=== PATIENT | male | born 1955 | race Caucasian/White ===

== ENCOUNTER 2017-11-08 10:38 | Emergency (ER) | payer MEDICAID ==
[2016-04-30 09:19] VITALS: BMI 27.1
[~2017-11-08 10:38] MED LIST: ASPIRIN81 MG PO; CORDARONE200 MG PO; HEMOCYTE PLUS C1 CAP PO; HYDROCODONE-APA1 TAB PO; LIPITOR10 MG PO; LOPRESSOR25 MG PO; RESTORIL15 MG PO; ZESTRIL10 MG PO
[2017-11-08 11:11] LABS: BASOPHILS 0.6 % (0-2); EOSINOPHILS 2.8 % (0-7); HEMATOCRIT 39.3 % (42.0-54.0); IMMATURE GRANULOCYTES 0.1 % (0-5); LYMPHOCYTES 29.2 % (15-50); MCH 32.8 pg (26.0-34.0); MCHC 33.1 g/dL (31.0-37.0); MCV 99.2 fL (80.0-100.0); MEAN PLATELET VOLUME 10.6 fL (7.4-10.4); MONOCYTES 9.3 % (2-11); PLATELET COUNT 183 10x3/uL (130-400); RBC 3.96 10x6/uL (4.20-6.10); RDW 15.5 % (11.5-14.5); WBC 7.2 10x3/uL (4.8-10.8)
[2017-11-08 11:40] LABS: ALBUMIN 3.8 g/dL (3.4-5.0); ALKALINE PHOSPHATASE 148 U/L (46-116); ALT (SGPT) 90 U/L (10-68); BILIRUBIN - TOTAL 1.89 mg/dL (0.2-1.3); CALC OSMOLALITY 289 mosm/kg (275-300); CALCIUM 8.7 mg/dL (8.5-10.1); CHLORIDE - SERUM 105 mmol/L (98-107); CREATININE - SERUM 1.7 mg/dL (0.6-1.3); GLUCOSE 100 mg/dL (74-106); POTASSIUM - SERUM 4.5 mmol/L (3.5-5.1); PROTEIN - SERUM 7.3 g/dL (6.4-8.2); SODIUM 141 mmol/L (136-145); UREA NITROGEN 39 mg/dL (7-18); eGFR NON AFRICAN AMERICAN 43 mL/min (90-120)
[2017-11-08 11:50] LABS: CKMB 2.9 U/L (0.0-3.6); CREATINE KINASE 135 UL (21-232); PRO BNP 1799 pg/mL (0-125)
[2017-11-08 11:51] LABS: TROPONIN-I < 0.017 ng/mL (0.000-0.060)
== END 2017-11-08 15:08 | disposition home or self-care (01) ==
LOC: D.ER 10:38
PROVIDERS: Family Medicine
DX: I48.91 Unspecified atrial fibrillation (principal); J90 Pleural effusion, not elsewhere classified; R06.02 Shortness of breath; I25.810 Atherosclerosis of coronary artery bypass graft(s) without angina pectoris; I10 Essential (primary) hypertension; I49.3 Ventricular premature depolarization; I45.10 Unspecified right bundle-branch block

== ENCOUNTER 2017-11-13 21:24 | Inpatient (IN) | payer MEDICAID ==
[~2017-11-13] VITALS: Ht 185.4 cm; Wt 105.2 kg
--- NOTE | ~2017-11-13 | EC ---
PATIENT:BRIONNA KEENAN DATE OF SERVICE: 11/13/17 SEX: M MEDICAL RECORD: [id number] DATE OF : 53 LOCATION:[place] [address] AGE OF PATIENT: 62 ADMISSION DATE: 11/13/17 REFERRING PHYSICIAN: INTERPRETING PHYSICIAN: MARTA ANGULO MD ECHOCARDIOGRAM REPORT ECHO CHARGES 4 ECHO COMPLETE CLINICAL DIAGNOSIS: AV BLOCK, ASSESS EF ECHOCARDIOGRAPHIC MEASUREMENTS (adult normal given) AC root (d.<3.7cm) 4.1 cm LV Septum d (<1.2 cm> 1.7 cm Valve Excursion 2.2 cm LV Septum (systole) 2.5 cm Left Atria (s.<4.0cm> 4.8 cm LVPW d(<1.2cm) 1.9 cm RV (d.<2.3cm) 5.4 cm LVPW (sytole) 2.5 cm LV diastole(<5.6CM) 6.2 cm MV E-F(>70mm/sec) cm LV systole 4.8 cm LVOT Diameter 2.2 cm MV exc.(>10mm) 1.5 cm Est.ejection fraction (50-75%) % Pericardial Effusion N DOPPLER: LVIT cm/sec A 54.0 cm/sec E 124 cm/sec LA cm/sec RVSP 45 mmHg LVOT 94 cm/sec AOP1/2T m/s Asc. Ao 128 cm/sec RVOT cm/sec RA cm/sec PA 93 cm/sec AV Gradient Peak 6.513mmHg AV Mean 3.05 mmHg AV Area 2.8 cm MV Gradient Peak 8.93 mmHg MV Mean 3.35 mmHg MV Area cm COMMENTS: Product Delivery Specialist: 2 MARCELLO SNOWDEN Fast Food Supervisor: 3 Dr. Mcgrath TAPE# PACS DATE OF SERVICE: 11/14/2017 Adequate 2D echo, color flow and spectral Doppler, and M-mode. LVH is present. LV internal dimensions are normal. Wall motion is normal. EF is greater than or equal to 55%. Aortic valve sclerosis without stenosis by Doppler interrogation. The left atrium is dilated at 4.8 cm. Mitral valve shows no prolapse, but a moderate plus MR. Right-sided chamber is grossly normal. Moderate TR by color flow imaging. TRANSINT:[id number] Voice Confirmation ID: [id number] DOCUMENT ID: [id number] ECHOCARDIOGRAM REPORT [id number] BRIONNA KEENAN 11/18/2017 Edited to correct date of service, dmm. MARTA ANGULO MD at 0823 CC: [id number] DICTATION DATE: 11/15/17 1049 FRONT EDGER: 11/15/17 1244 DIS IN 11/15/17 [place] [id number] [place] [id number]
--- NOTE | ~2017-11-13 | CN ---
PATIENT NAME:BRIONNA KEENAN MEDICAL RECORD: [id number] : 53 LOCATION:[facility] ADMIT DATE: 11/13/17 ACCOUNT: [id number] CONSULTING PHYSICIAN: MARTA ANGULO MD REFERRING PHYSICIAN: KUNAL CRAIN MD DATE OF CONSULTATION: 11/14/2017 Cardiology Consultation HISTORY OF PRESENT ILLNESS: A 62-year-old gentleman with a known history of coronary artery disease status post coronary bypass grafting, was seen with atrial fibrillation and RVR initially, saw Dr. Sheth in clinic and was started on sotalol. He was previously on lisinopril, potassium supplementation, and Lasix. He presented to the ER basically with mone syncope, was found to have almost mone sine waves with potassium of 7.1. Core temperature was decreased fortunately. He has received insulin, bicarbonate, and Kayexalate and repeat potassium is pending. He is currently in sinus rhythm actually. We are asked to see him concerning his cardiovascular status. PAST MEDICAL HISTORY: Includes: 1. History of hypertension. 2. Atrial fibrillation. 3. Coronary artery disease. ALLERGIES: MORPHINE. MEDICATIONS: Typically include sotalol 80 b.i.d., Xarelto 20 daily, lisinopril 10 daily, atorvastatin 10 daily, metoprolol 50 b.i.d. SOCIAL HISTORY: , lives here in [place]. He was smoking at the time of his bypass surgery. REVIEW OF SYSTEMS: The patient reports easy bruising but reports no swollen glands. The patient reports no fever, no night sweats, no significant weight gain, no significant weight loss. No significant exercise tolerance. The patient reports no dry eyes, no irritation, no vision change. Patient reports no difficulty hearing and no ear pain. Patient reports no frequent nose bleeds or nose and sinus problems. Patient reports on arm pain on exertion. No shortness of breath while lying down. No history of heart murmur. Patient reports no cough, no wheezing or coughing up blood. Patient reports no abdominal pain, no vomiting. Normal appetite. No diarrhea and not vomiting blood. No nausea and no constipation. Patient reports no incontinence. No difficulty urinating. No hematuria. No increased frequency. Patient reports no muscle aches. No weakness, no arthralgias, no back pain. No swelling of the extremities. Patient reports no abnormal mole, no jaundice, no rashes. Reports no loss of consciousness. No weakness and no numbness. No seizures, dizziness, or headaches. The patient reports no depression, no sleep disturbance, feeling safe in a relationship and no alcohol abuse. Patient reports on fatigue. Reports no runny nose or sinus pressure. No itching, no hives, and no frequent sneezing. PHYSICAL EXAMINATION: GENERAL: Pleasant gentleman in no acute distress, alert and oriented. VITAL SIGNS: Blood pressure 106/86, pulse 76 and regular. HEENT: Normocephalic, atraumatic. CONSULT REPORT [id number] BRIONNA KEENAN NECK: No JVD or bruit. HEART: Regular. I do not hear any systole. LUNGS: Clear. ABDOMEN: Soft, nontender. EXTREMITIES: Pulses 2+ with no edema. NEUROLOGICAL: Grossly intact. DIAGNOSTIC DATA: ECG currently shows sinus rhythm. IMPRESSION: Hyperkalemia with marked ST-T and QRS changes, almost sine wave on his initial ECG. In talking with the patient, he has had severe GI distress. He has been eating peaches only for the last couple of days and has probably multifactorial issues. We will decrease potassium appropriately, reevaluate medications. Echocardiography study check. TRANSINT:[id number] Voice Confirmation ID: [id number] DOCUMENT ID: [id number] MARTA ANGULO MD at 0823 CC: [id number] DICTATION DATE: 11/14/17 112 PLASTER FOREMAN: 11/14/17 1528 DIS IN 11/15/17 [place] [id number] [place] [id number]
[2017-11-13 21:41] LABS: BASOPHILS 0.6 % (0-2); EOSINOPHILS 1.8 % (0-7); HEMATOCRIT 44.8 % (42.0-54.0); HEMOGLOBIN 14.4 g/dL (13.5-17.5); IMMATURE GRANULOCYTES 2.8 % (0-5); LYMPHOCYTES 36.5 % (15-50); MCH 32.4 pg (26.0-34.0); MCHC 32.1 g/dL (31.0-37.0); MCV 100.7 fL (80.0-100.0); MEAN PLATELET VOLUME 11.9 fL (7.4-10.4); MONOCYTES 6.3 % (2-11); PLATELET COUNT 241 10x3/uL (130-400); RBC 4.45 10x6/uL (4.20-6.10); RDW 16.1 % (11.5-14.5); WBC 10.6 10x3/uL (4.8-10.8)
[2017-11-13 22:31] LABS: APPEARANCE CLEAR (CLEAR); BILIRUBIN NEGATIVE (NEGATIVE); COLOR YELLOW (YELLOW); GLUCOSE NEGATIVE (NEGATIVE); KETONE NEGATIVE (NEGATIVE); NITRITE NEGATIVE (NEGATIVE); PROTEIN 1+ mg/dL (NEGATIVE); SPECIFIC GRAVITY 1.025 (1.005-1.020); UROBILINOGEN NORMAL (NORMAL)
[2017-11-13 22:32] LABS: BACTERIA MODERATE /hpf (NONE SEEN)
[2017-11-13 22:50] LABS: UDS - AMPHET NEGATIVE QUAL (NEGATIVE); UDS - BARB NEGATIVE QUAL (NEGATIVE); UDS - BENZO POSITIVE QUAL (NEGATIVE); UDS - COCAINE NEGATIVE QUAL (NEGATIVE); UDS - OPIATE POSITIVE QUAL (NEGATIVE); UDS - PCP NEGATIVE QUAL (NEGATIVE); UDS - THC POSITIVE QUAL (NEGATIVE)
[2017-11-13 22:58] LABS: ALBUMIN 3.4 g/dL (3.4-5.0); ALKALINE PHOSPHATASE 174 U/L (46-116); ALT (SGPT) 171 U/L (10-68); CALC OSMOLALITY 281 mosm/kg (275-300); CALCIUM 9.6 mg/dL (8.5-10.1); CARBON DIOXIDE 18.6 mmol/L (21.0-32.0); CHLORIDE - SERUM 103 mmol/L (98-107); CHOL - HDL RATIO 3.1 ratio (2.3-4.9); CHOLESTEROL, TOTAL 81 mg/dL (0-200); CKMB 2.2 U/L (0.0-3.6); CREATINE KINASE 78 UL (21-232); CREATININE - SERUM 2.5 mg/dL (0.6-1.3); GLUCOSE 116 mg/dL (74-106); HDL CHOLESTEROL 26 mg/dL (32-96); LDL CHOLESTEROL 47 mg/dL (0-100); LDL-HDL RATIO 1.8 ratio (1.5-3.5); MAGNESIUM - SERUM 2.5 mg/dL (1.8-2.4); SODIUM 135 mmol/L (136-145); THYROID STIMULATING HORMONE 6.87 uIU/mL (0.36-3.74); TRIGLYCERIDE 43 mg/dL (30-200); TROPONIN-I < 0.017 ng/mL (0.000-0.060); UREA NITROGEN 44 mg/dL (7-18); eGFR NON AFRICAN AMERICAN 28 mL/min (90-120)
[2017-11-13 22:59] LABS: POTASSIUM - SERUM 7.3 mmol/L (3.5-5.1)
[2017-11-14] VITALS (50 sets, daily range): BP systolic 107–147; BP diastolic 69–105; BMI 30.7
[2017-11-14 04:15] LABS: BASOPHILS 0.1 % (0-2); EOSINOPHILS 0.2 % (0-7); HEMOGLOBIN 13.7 g/dL (13.5-17.5); IMMATURE GRANULOCYTES 0.7 % (0-5); LYMPHOCYTES 14.3 % (15-50); MCH 32.5 pg (26.0-34.0); MCHC 32.6 g/dL (31.0-37.0); MCV 99.8 fL (80.0-100.0); MONOCYTES 8.1 % (2-11); NEUTROPHILS 76.6 % (40-80); PLATELET COUNT 209 10x3/uL (130-400); RBC 4.21 10x6/uL (4.20-6.10); RDW 15.8 % (11.5-14.5)
[2017-11-14 04:16] LABS: WBC 13.5 10x3/uL (4.8-10.8)
[2017-11-14 04:37] LABS: ANION GAP 19.3 mmol/L (8-16); CALCIUM 8.2 mg/dL (8.5-10.1); CARBON DIOXIDE 19.8 mmol/L (21.0-32.0); CREATININE - SERUM 2.5 mg/dL (0.6-1.3)
[2017-11-14 04:40] LABS: POTASSIUM - SERUM 7.1 mmol/L (3.5-5.1)
[2017-11-14] MEDS ORDERED: KLOR-CON 1010 MEQ PO (12:39)
[2017-11-14] MEDS ORDERED: BETAPACE 80 MG80 MG PO (12:39)
[2017-11-14] MEDS ORDERED: LASIX40 MG PO (12:40)
[2017-11-14] MEDS ORDERED: XARELTO20 MG PO (12:40)
[2017-11-14] MEDS ORDERED: CARDIZEM120 MG PO (12:40)
[2017-11-15] VITALS: BP 133/88
[2017-11-15 04:16] LABS: BASOPHILS 0.3 % (0-2); EOSINOPHILS 1.3 % (0-7); HEMATOCRIT 39.2 % (42.0-54.0); HEMOGLOBIN 12.6 g/dL (13.5-17.5); IMMATURE GRANULOCYTES 0.2 % (0-5); LYMPHOCYTES 23.3 % (15-50); MCH 31.9 pg (26.0-34.0); MCHC 32.1 g/dL (31.0-37.0); MCV 99.2 fL (80.0-100.0); MEAN PLATELET VOLUME 11.1 fL (7.4-10.4); MONOCYTES 5.9 % (2-11); PLATELET COUNT 190 10x3/uL (130-400); RBC 3.95 10x6/uL (4.20-6.10); RDW 16.1 % (11.5-14.5)
[2017-11-15 04:18] LABS: WBC 9.3 10x3/uL (4.8-10.8)
[2017-11-15 04:37] LABS: BILIRUBIN - TOTAL 0.77 mg/dL (0.2-1.3); CARBON DIOXIDE 22.7 mmol/L (21.0-32.0); PROTEIN - SERUM 6.2 g/dL (6.4-8.2)
[2017-11-15 04:38] LABS: ANION GAP 15.2 mmol/L (8-16); CREATININE - SERUM 1.8 mg/dL (0.6-1.3); POTASSIUM - SERUM 3.9 mmol/L (3.5-5.1)
[2017-11-15 07:00] VITALS: BP 140/95
[2017-11-15 07:49] LABS: CHOL - HDL RATIO 3.9 ratio (2.3-4.9); LDL-HDL RATIO 2.3 ratio (1.5-3.5); THYROID STIMULATING HORMONE 1.2 uIU/mL (0.36-3.74)
[2017-11-15 08:00] VITALS: BP 123/90
[2017-11-15 09:00] VITALS: BP 136/82
[2017-11-15 10:00] VITALS: BP 124/78
[2017-11-15 10:46] VITALS: Ht 185.4 cm; Wt 105.2 kg
[2017-11-15] MEDS ORDERED: ASPIRIN81 MG PO (11:09)
[2017-11-15] MEDS ORDERED: LIPITOR10 MG PO (11:10)
== END 2017-11-15 12:45 | disposition home or self-care (01) | DRG 683 ==
LOC: D.ER 21:24 → D.CVICU 23:34
PROVIDERS: Emergency Medicine; Family Medicine
PROC: 0T9B70Z Drainage of Bladder with Drainage Device, Via Natural or Artificial Opening (ICD-10-PCS; principal; 2017-11-13)
DX: N17.9 Acute kidney failure, unspecified (principal); I13.0 Hypertensive heart and chronic kidney disease with heart failure and stage 1 through stage 4 chronic kidney disease, or unspecified chronic kidney disease; N39.0 Urinary tract infection, site not specified; I50.32 Chronic diastolic (congestive) heart failure; R00.1 Bradycardia, unspecified; I25.10 Atherosclerotic heart disease of native coronary artery without angina pectoris; Z95.1 Presence of aortocoronary bypass graft; N18.9 Chronic kidney disease, unspecified; E16.2 Hypoglycemia, unspecified; T68.XXXA Hypothermia, initial encounter; G89.4 Chronic pain syndrome; I95.9 Hypotension, unspecified; E87.5 Hyperkalemia; J44.9 Chronic obstructive pulmonary disease, unspecified; D63.1 Anemia in chronic kidney disease; G47.00 Insomnia, unspecified; F41.9 Anxiety disorder, unspecified; E03.9 Hypothyroidism, unspecified; Z72.0 Tobacco use

== ENCOUNTER 2017-11-16 23:48 | Emergency (ER) | payer MEDICAID ==
[2017-11-15 10:46] VITALS: BMI 30.6
[~2017-11-16 23:48] MED LIST changes: +BETAPACE 80 MG80 MG PO; +CARDIZEM120 MG PO; +KLOR-CON 1010 MEQ PO; +LASIX40 MG PO; +XARELTO20 MG PO
[2017-11-17 01:11] LABS: BASOPHILS 0.5 % (0-2); EOSINOPHILS 4.4 % (0-7); HEMATOCRIT 38.8 % (42.0-54.0); HEMOGLOBIN 12.4 g/dL (13.5-17.5); IMMATURE GRANULOCYTES 0.1 % (0-5); LYMPHOCYTES 31.9 % (15-50); MCH 31.7 pg (26.0-34.0); MCV 99.2 fL (80.0-100.0); MEAN PLATELET VOLUME 10.7 fL (7.4-10.4); MONOCYTES 8.2 % (2-11); NEUTROPHILS 54.9 % (40-80); PLATELET COUNT 156 10x3/uL (130-400); RBC 3.91 10x6/uL (4.20-6.10); WBC 8.8 10x3/uL (4.8-10.8)
[2017-11-17 01:22] LABS: ALBUMIN 3.4 g/dL (3.4-5.0); ANION GAP 13.8 mmol/L (8-16); BILIRUBIN - TOTAL 0.8 mg/dL (0.2-1.3); CARBON DIOXIDE 23.2 mmol/L (21.0-32.0)
[2017-11-17 01:23] LABS: CREATININE - SERUM 1.1 mg/dL (0.6-1.3)
[2017-11-17 02:22] LABS: APPEARANCE CLOUDY (CLEAR); BILIRUBIN NEGATIVE (NEGATIVE); COLOR RED (YELLOW); GLUCOSE NEGATIVE (NEGATIVE); KETONE NEGATIVE (NEGATIVE); NITRITE NEGATIVE (NEGATIVE); PROTEIN 3+ mg/dL (NEGATIVE); UROBILINOGEN NORMAL (NORMAL)
[2017-11-17 02:23] LABS: BACTERIA MODERATE /hpf (NONE SEEN); EPITHELIAL CELLS NSEEN /hpf (0-5); RED CELLS - URINE >50 /hpf (0-5); WHITE CELLS - URINE 0-5 /hpf (0-5)
== END 2017-11-17 03:10 | disposition home or self-care (01) ==
LOC: D.ER 23:48
PROVIDERS: Family Medicine
DX: N39.0 Urinary tract infection, site not specified (principal); R31.9 Hematuria, unspecified; I10 Essential (primary) hypertension; I25.10 Atherosclerotic heart disease of native coronary artery without angina pectoris

== ENCOUNTER 2017-11-20 05:18 | Emergency (ER) | payer MEDICAID ==
[2017-11-15 10:46] VITALS: BMI 30.6
[2017-11-20 05:50] LABS: BASOPHILS 0.5 % (0-2); EOSINOPHILS 4.7 % (0-7); HEMATOCRIT 37.2 % (42.0-54.0); IMMATURE GRANULOCYTES 0.4 % (0-5); LYMPHOCYTES 23.7 % (15-50); MCH 32.1 pg (26.0-34.0); MCHC 32.3 g/dL (31.0-37.0); MCV 99.5 fL (80.0-100.0); MEAN PLATELET VOLUME 10.8 fL (7.4-10.4); MONOCYTES 7.5 % (2-11); NEUTROPHILS 63.2 % (40-80); PLATELET COUNT 157 10x3/uL (130-400); RBC 3.74 10x6/uL (4.20-6.10); RDW 15.8 % (11.5-14.5); WBC 7.5 10x3/uL (4.8-10.8)
[2017-11-20 06:10] LABS: ALBUMIN 3.4 g/dL (3.4-5.0); ANION GAP 13.3 mmol/L (8-16); BILIRUBIN - TOTAL 1.3 mg/dL (0.2-1.3); CALCIUM 8.8 mg/dL (8.5-10.1); CARBON DIOXIDE 26.4 mmol/L (21.0-32.0); CREATININE - SERUM 1.3 mg/dL (0.6-1.3); POTASSIUM - SERUM 3.7 mmol/L (3.5-5.1); PROTEIN - SERUM 7.2 g/dL (6.4-8.2)
[2017-11-20 06:36] LABS: APPEARANCE CLOUDY (CLEAR); COLOR YELLOW (YELLOW); NITRITE POSITIVE (NEGATIVE); SPECIFIC GRAVITY 1.015 (1.005-1.020)
[2017-11-20 06:37] LABS: BILIRUBIN NEGATIVE (NEGATIVE); GLUCOSE NEGATIVE (NEGATIVE); KETONE NEGATIVE (NEGATIVE); PROTEIN NEGATIVE (NEGATIVE); UROBILINOGEN NORMAL (NORMAL)
[2017-11-20 06:38] LABS: BACTERIA FEW /hpf (NONE SEEN); EPITHELIAL CELLS 0-5 /hpf (0-5); WHITE CELLS - URINE 0-5 /hpf (0-5)
== END 2017-11-20 07:42 | disposition home or self-care (01) ==
LOC: D.ER 05:18
PROVIDERS: Family Medicine
DX: J15.9 Unspecified bacterial pneumonia (principal); I50.9 Heart failure, unspecified; I48.91 Unspecified atrial fibrillation; I45.10 Unspecified right bundle-branch block

== ENCOUNTER 2018-01-02 20:23 | Emergency (ER) | payer MEDICAID ==
[2017-11-15 10:46] VITALS: BMI 30.6
[2018-01-02 20:49] LABS: BASOPHILS 1.1 % (0-2); EOSINOPHILS 2.6 % (0-7); HEMATOCRIT 39.1 % (42.0-54.0); HEMOGLOBIN 12.5 g/dL (13.5-17.5); IMMATURE GRANULOCYTES 0.5 % (0-5); LYMPHOCYTES 28.3 % (15-50); MCH 30.7 pg (26.0-34.0); MCV 96.1 fL (80.0-100.0); MEAN PLATELET VOLUME 12.6 fL (7.4-10.4); MONOCYTES 11.6 % (2-11); NEUTROPHILS 55.9 % (40-80); PLATELET COUNT 173 10x3/uL (130-400); RBC 4.07 10x6/uL (4.20-6.10); RDW 16.6 % (11.5-14.5); WBC 5.7 10x3/uL (4.8-10.8)
[2018-01-02 21:13] LABS: APPEARANCE CLEAR (CLEAR); BILIRUBIN NEGATIVE (NEGATIVE); COLOR YELLOW (YELLOW); GLUCOSE NEGATIVE (NEGATIVE); KETONE NEGATIVE (NEGATIVE); NITRITE NEGATIVE (NEGATIVE); PROTEIN NEGATIVE (NEGATIVE); SPECIFIC GRAVITY 1.015 (1.005-1.020); UROBILINOGEN NORMAL (NORMAL)
[2018-01-02 21:24] LABS: APTT 34.3 SECONDS (22.8-39.4); INR 1.92 (0.85-1.17); PROTIME 21.4 SECONDS (11.6-15.0)
[2018-01-02 21:30] LABS: ALBUMIN 3.3 g/dL (3.4-5.0); ANION GAP 18.7 mmol/L (8-16); BILIRUBIN - TOTAL 3.97 mg/dL (0.2-1.3); CALCIUM 8.5 mg/dL (8.5-10.1); CARBON DIOXIDE 21.1 mmol/L (21.0-32.0); CREATININE - SERUM 1.9 mg/dL (0.6-1.3); POTASSIUM - SERUM 3.8 mmol/L (3.5-5.1); PROTEIN - SERUM 7.6 g/dL (6.4-8.2); TROPONIN-I 0.021 ng/mL (0.000-0.060)
[2018-01-02 21:37] LABS: UDS - AMPHET NEGATIVE QUAL (NEGATIVE); UDS - BARB NEGATIVE QUAL (NEGATIVE); UDS - BENZO POSITIVE QUAL (NEGATIVE); UDS - COCAINE NEGATIVE QUAL (NEGATIVE); UDS - OPIATE POSITIVE QUAL (NEGATIVE); UDS - PCP NEGATIVE QUAL (NEGATIVE); UDS - THC POSITIVE QUAL (NEGATIVE)
== END 2018-01-02 22:20 | disposition home or self-care (01) ==
LOC: D.ER 20:23
PROVIDERS: Family Medicine
DX: I48.2 Chronic atrial fibrillation (principal); I50.9 Heart failure, unspecified; I10 Essential (primary) hypertension; I45.10 Unspecified right bundle-branch block; I44.5 Left posterior fascicular block

== ENCOUNTER 2018-01-14 12:32 | Emergency (ER) | payer MEDICAID ==
[2017-11-15 10:46] VITALS: BMI 30.6
[2018-01-14 13:04] LABS: BASOPHILS 0.9 % (0-2); EOSINOPHILS 1.7 % (0-7); HEMATOCRIT 38.4 % (42.0-54.0); HEMOGLOBIN 12.4 g/dL (13.5-17.5); IMMATURE GRANULOCYTES 0.2 % (0-5); LYMPHOCYTES 32.5 % (15-50); MCH 30.6 pg (26.0-34.0); MCHC 32.3 g/dL (31.0-37.0); MCV 94.8 fL (80.0-100.0); MEAN PLATELET VOLUME 12.1 fL (7.4-10.4); MONOCYTES 8.5 % (2-11); NEUTROPHILS 56.2 % (40-80); PLATELET COUNT 133 10x3/uL (130-400); RBC 4.05 10x6/uL (4.20-6.10); RDW 17.5 % (11.5-14.5); WBC 5.8 10x3/uL (4.8-10.8)
[2018-01-14 13:28] LABS: ALBUMIN 3.1 g/dL (3.4-5.0); ALKALINE PHOSPHATASE 189 U/L (46-116); ALT (SGPT) 61 U/L (10-68); CALC OSMOLALITY 288 mosm/kg (275-300); CARBON DIOXIDE 23.2 mmol/L (21.0-32.0); CHLORIDE - SERUM 102 mmol/L (98-107); CREATININE - SERUM 2.3 mg/dL (0.6-1.3); GLUCOSE 116 mg/dL (74-106); POTASSIUM - SERUM 4.1 mmol/L (3.5-5.1); PROTEIN - SERUM 7.7 g/dL (6.4-8.2); SODIUM 137 mmol/L (136-145); UREA NITROGEN 53 mg/dL (7-18); eGFR NON AFRICAN AMERICAN 31 mL/min (90-120)
[2018-01-14 13:44] LABS: CKMB 5.5 U/L (0.0-3.6); CREATINE KINASE 319 UL (21-232); PRO BNP 1140 pg/mL (0-125); TROPONIN-I 0.022 ng/mL (0.000-0.060)
[2018-01-14 13:58] LABS: APTT 33.8 SECONDS (22.8-39.4)
[2018-01-14 14:04] LABS: INR 1.76 (0.85-1.17)
[2018-01-14 14:13] LABS: D-DIMER-QUANTITATIVE 5.56 ug/mLFEU (0.20-0.54)
== END 2018-01-14 20:40 | disposition home or self-care (01) ==
LOC: D.ER 12:32
PROVIDERS: Family Medicine
DX: R06.02 Shortness of breath (principal); I50.9 Heart failure, unspecified; R60.0 Localized edema; I48.91 Unspecified atrial fibrillation; I10 Essential (primary) hypertension; I45.2 Bifascicular block

== ENCOUNTER → 2018-01-24 10:56 | Outpatient (CLI) | payer MEDICAID ==
[2017-11-15 10:46] VITALS: BMI 30.6
[2018-01-24 11:47] LABS: EOSINOPHILS 2.4 % (0-7); HEMATOCRIT 37.6 % (42.0-54.0); IMMATURE GRANULOCYTES 0.2 % (0-5); LYMPHOCYTES 37.1 % (15-50); MCHC 31.9 g/dL (31.0-37.0); MEAN PLATELET VOLUME 12.6 fL (7.4-10.4); MONOCYTES 12.4 % (2-11); NEUTROPHILS 46.9 % (40-80); PLATELET COUNT 157 10x3/uL (130-400); RDW 17.3 % (11.5-14.5); WBC 4.9 10x3/uL (4.8-10.8)
[2018-01-24 12:27] LABS: ALBUMIN 2.7 g/dL (3.4-5.0); ANION GAP 10.8 mmol/L (8-16); BILIRUBIN - TOTAL 3.6 mg/dL (0.2-1.3); CALCIUM 8.2 mg/dL (8.5-10.1); CARBON DIOXIDE 24.9 mmol/L (21.0-32.0); CHOL - HDL RATIO 5.3 ratio (2.3-4.9); CREATININE - SERUM 1.9 mg/dL (0.6-1.3); LDL-HDL RATIO 3.5 ratio (1.5-3.5); POTASSIUM - SERUM 3.7 mmol/L (3.5-5.1); PROTEIN - SERUM 6.8 g/dL (6.4-8.2)
== END | disposition home or self-care (01) ==
LOC: D.RAD 08:00
PROVIDERS: Family Medicine
DX: J18.9 Pneumonia, unspecified organism (principal); I50.9 Heart failure, unspecified; R06.02 Shortness of breath; N28.9 Disorder of kidney and ureter, unspecified; I48.91 Unspecified atrial fibrillation; I25.10 Atherosclerotic heart disease of native coronary artery without angina pectoris